=== PATIENT | female | born 1960 ===

== ENCOUNTER 2018-09-19 12:54 | Emergency (ER) | payer OTHER, SELFPAY ==
[2018-09-19] MEDS ORDERED: Cyclobenzaprine 10 MG TAB ONE (14:14)
[2018-09-19] MEDS ORDERED: Ketorolac Tromethamine 30 MG/ML VIAL ONE (14:14)
== END 2018-09-19 14:30 | disposition home or self-care (01) ==
LOC: ERS 12:54
DX: S39.012A Strain of muscle, fascia and tendon of lower back, initial encounter (principal); F41.9 Anxiety disorder, unspecified; E11.622 Type 2 diabetes mellitus with other skin ulcer; L97.119 Non-pressure chronic ulcer of right thigh with unspecified severity; L98.499 Non-pressure chronic ulcer of skin of other sites with unspecified severity; X50.0XXA Overexertion from strenuous movement or load, initial encounter
CPT/HCPCS: 96372; J1885